=== PATIENT | male | born 1990 | race Caucasian/White ===

== ENCOUNTER 2025-02-06 02:03 | Emergency (ER) | payer MEDICAID ==
[~2025-02-06] VITALS: Ht 185.4 cm; Wt 86.2 kg
[2025-02-06] MEDS ORDERED: TDAP [DIPH/PERTUSSIS/TET] 0.5 ML VIAL IM ONE (03:15)
[2025-02-06] MEDS: TDAP [DIPH/PERTUSSIS/TET] 0.5 ML VIAL IM ONE (03:18)
[2025-02-06] MEDS ORDERED: LIDOCAINE 1%-EPI 1:100,000 20 ML VIAL ONE (04:16)
[2025-02-06 05:14] VITALS: BP 120/70; TEMP 98; O2SAT 99
== END 2025-02-06 05:15 | disposition home or self-care (01) ==
LOC: ER 02:16
DX: S01.81XA Laceration without foreign body of other part of head, initial encounter (principal); R40.0 Somnolence; F17.200 Nicotine dependence, unspecified, uncomplicated; W18.39XA Other fall on same level, initial encounter; Y93.89 Activity, other specified; Y92.89 Other specified places as the place of occurrence of the external cause; Y99.8 Other external cause status
CPT/HCPCS: 12013; 70486; 82962; 90471; 90715; 99285; J3490